=== PATIENT | male | born 1990 | race American Indian/Alaskan Native ===

== ENCOUNTER 2020-10-14 16:28 | Emergency (ER) | payer SELFPAY ==
[2020-10-14 17:21] VITALS: BP 146/81
[2020-10-14] MEDS ORDERED: PENICILLIN G BENZATHINE 1.2 MILLION UNIT/2 ML INJ IM ONE (18:02)
--- NOTE | 2020-10-14 18:06 | Emergency Department Report ---
ED Male HPI - General Chief complaint: Dental/Oral Stated complaint: LIP SWOLLEN Source: patient Mode of arrival: Ambulatory Limitations: No Limitations - History of Present Illness Initial comments: 30-year-old -Vincentian male with a history of HIV that is noncompliant on medications presents to the emergency room for a fever blister on his left lower lip and neck chancre lesion on the dorsum side of the penis. Patient reports he is followed by [facility] but has not seen them since covid. Patient has not taken any pain medication. Patient reports pain on the penis and the oral mucosa is a 10 out of 10. Onset/Timin -: days(s) (Fever blister), week(s) (Penis) Location: penis Severity: severe Severity scale (0 -10): 10 Quality: aching, burning, sharp Consistency: constant Improves with: none Worsens with: none - Related Data Sexually active: Yes Previous Rx's Medication Instructions Recorded Last Taken Type Acyclovir [Zovirax Tab] 400 mg PO Q8H #30 tab 10/14/20 Unknown Rx traMADoL [Ultram 50 MG tab] 50 mg PO Q6HR PRN #12 tablet 10/14/20 Unknown Rx Allergies Allergy/AdvReac Type Severity Reaction Status Date / Time No Known Allergies Allergy Unverified 10/14/20 17:17 ED Review of Systems ROS: Stated complaint: LIP SWOLLEN Other details as noted in HPI Comment: All other systems reviewed and negative ED Past Medical Hx - Past Medical History Previous Medical History?: No Hx HIV: Yes - Surgical History Past Surgical History?: No - Social History Smoking Status: Current Every Day Smoker Substance Use Type: Alcohol - Medications Home Medications: Home Medications Medication Instructions Recorded Confirmed Last Taken Type Acyclovir [Zovirax Tab] 400 mg PO Q8H #30 tab 10/14/20 Unknown Rx traMADoL [Ultram 50 MG tab] 50 mg PO Q6HR PRN #12 tablet 10/14/20 Unknown Rx ED Physical Exam - General Limitations: No Limitations General appearance: alert, in no apparent distress - Head Head exam: Present: atraumatic, normocephalic - Eye Eye exam: Present: normal appearance - ENT ENT exam: Present: mucous membranes moist - Neck Neck exam: Present: full ROM - Respiratory Respiratory exam: Absent: accessory muscle use - External exam: Present: lesions (Dorsum right penis ulcer quarter size) - Extremities Exam Extremities exam: Present: normal inspection, full ROM - Back Exam Back exam: Present: normal inspection, full ROM - Neurological Exam Neurological exam: Present: alert, oriented X3 - Psychiatric Psychiatric exam: Present: normal affect, normal mood - Skin Skin exam: Present: warm, dry, intact, normal color. Absent: rash ED Course Vital Signs 10/14/20 10/14/20 17:16 17:23 Temperature 98.6 F 98.2 F Pulse Rate 102 H Respiratory 14 18 Rate Blood Pressure 146/81 Blood Pressure 146/81 [Right] O2 Sat by Pulse 99 Oximetry ED Medical Decision Making - Medical Decision Making 30-year-old -Vincentian male with a history of HIV that is noncompliant on medications presents to the emergency room for a fever blister on his left lower lip and neck chancre lesion on the dorsum side of the penis. Patient reports he is followed by [facility] but has not seen them since covsd. Patient has not taken any pain medication. Patient reports pain on the penis and the oral mucosa is a 10 out of 10. HIV positive follow-up with [facility] to get started back on your retroviral medication Fever blister patient be placed on acyclovir 400 mg 3 times daily for 10 days Chancre lesion on penis patient will be given penicillin G 2.4 mg IM. Critical care attestation.: If time is entered above; I have spent that time in minutes in the direct care of this critically ill patient, excluding procedure time. 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 You are being treated for syphilis and herpes simplex 1. Inform your sexual partner that you are being treated for syphilis. Prescriptions: traMADoL [Ultram 50 MG tab] 50 mg PO Q6HR PRN #12 tablet PRN Reason: Pain Acyclovir [Zovirax Tab] 400 mg PO Q8H #30 tab Referrals: [facility] [Other] - 3-5 Days
[2020-10-14] MEDS ORDERED: traMADol 50 MG TAB PO ONE (18:19)
== END 2020-10-14 19:04 | disposition home or self-care (01) ==
LOC: ED 16:28
DX: A51.0 Primary genital syphilis (principal); B00.9 Herpesviral infection, unspecified; F17.200 Nicotine dependence, unspecified, uncomplicated; Z79.899 Other long term (current) drug therapy; Z21 Asymptomatic human immunodeficiency virus [HIV] infection status
CPT/HCPCS: 96372; 99282; J0561

== ENCOUNTER 2021-01-23 19:26 | Observation (INO) | payer OTHER, SELFPAY ==
[2021-01-23] MEDS ORDERED: ACETAMINOPHEN 500 MG TAB PO ONE (19:54)
[2021-01-23] MEDS ORDERED: SODIUM CHLORIDE 0.9% 1000 ML 1,000 ML IV ONE (20:20)
[2021-01-23] MEDS ORDERED: ONDANSETRON 4 MG/2 ML INJ IV ONE (21:21)
[2021-01-23] MEDS ORDERED: HYDROmorphone 1 MG/1 ML INJ IV ONE (21:21)
[2021-01-23] MEDS ORDERED: AZITHROMYCIN/NS 500 MG/250 ML 500 MG/250 ML BAG IV ONE (21:22)
[2021-01-23] MEDS ORDERED: cefTRIAXone/NS 2 GM/100 ML 2 GM/100 ML BAG IV ONE (21:22)
[2021-01-23] MEDS ORDERED: dexAMETHasone 4 MG/ML VIAL IV ONE (21:22)
--- NOTE | 2021-01-23 21:24 | Emergency Department Report ---
ED Fever HPI - General Chief Complaint: Fever Stated Complaint: FEVER PUI?: Yes Time Seen by Provider: 01/23/21 20:19 Source: patient Exam Limitations: no limitations - History of Present Illness Initial Comments: Patient is a 30-year-old male that presents emergency room with complaints of fever, fatigue, loss of smell, sore throat. Patient states his symptoms started 4 days ago. Patient states his symptoms are worsening. Patient also complaining of body aches. Patient denies chest pain or shortness of breath. Patient denies nausea vomiting. Patient denies diarrhea. Patient states he has a history of HIV. Patient states he is not taking his HIV medications for many months. Patient dates he can get appointment with his infectious disease doctor. Patient states that he went to a alliance party last weekend and then developed symptoms. Patient denies coming in contact with a sick contact. Patient denies international travel. Patient denies diarrhea. Patient denies chest pain. Timing/Duration: getting worse Fever Severity/Quality: subjective Fever Therapy CHARGE LOADER: Ibuprofen Associated Symptoms: headache, muscle aches, sore throat. denies: abdominal pain, chest pain, confusion, cough, diaphoresis, nausea/vomiting, rash, shortness of breath, stiff neck, syncope, weakness ED Review of Systems ROS: Stated complaint: FEVER Other details as noted in HPI Constitutional: see HPI, chills, fever, malaise Eyes: denies: eye pain, eye discharge, vision change ENT: as per HPI, throat pain. denies: ear pain Respiratory: see HPI. denies: cough, shortness of breath, wheezing Cardiovascular: denies: chest pain, palpitations Endocrine: no symptoms reported Gastrointestinal: denies: abdominal pain, nausea, vomiting, diarrhea Genitourinary: denies: urgency, dysuria Musculoskeletal: denies: back pain, joint swelling, arthralgia Skin: denies: rash, lesions Neurological: denies: headache, weakness, paresthesias Psychiatric: denies: anxiety, depression Hematological/Lymphatic: denies: easy bleeding, easy bruising ED Past Medical Hx - Past Medical History Previous Medical History?: Yes Hx HIV: Yes - Surgical History Past Surgical History?: No - Family History Family history: no significant - Social History Smoking Status: Current Every Day Smoker Substance Use Type: None - Medications Home Medications: Home Medications Medication Instructions Recorded Confirmed Last Taken Type Acyclovir [Zovirax Tab] 400 mg PO Q8H #30 tab 10/14/20 Unknown Rx traMADoL [Ultram 50 MG tab] 50 mg PO Q6HR PRN #12 tablet 10/14/20 Unknown Rx ED Physical Exam - General Limitations: No Limitations General appearance: alert, in no apparent distress - Head Head exam: Present: atraumatic, normocephalic - Eye Eye exam: Present: normal appearance - ENT ENT exam: Present: mucous membranes moist - Neck Neck exam: Present: normal inspection - Respiratory Respiratory exam: Present: normal lung sounds bilaterally. Absent: respiratory distress - Cardiovascular Cardiovascular Exam: Present: regular rate, normal rhythm. Absent: systolic murmur, diastolic murmur, rubs, gallop - GI/Abdominal GI/Abdominal exam: Present: soft, normal bowel sounds - Rectal Rectal exam: Present: deferred - Extremities Exam Extremities exam: Present: normal inspection - Back Exam Back exam: Present: normal inspection - Neurological Exam Neurological exam: Present: alert, oriented X3 - Psychiatric Psychiatric exam: Present: normal affect, normal mood - Skin Skin exam: Present: warm, dry, intact, normal color. Absent: rash ED Course Vital Signs 01/23/21 19:53 Temperature 103.0 F H Pulse Rate 130 H Respiratory 22 Rate Blood Pressure 161/94 - Reevaluation(s) Reevaluation #1: Patient states he is feeling better after the pain medication. Patient has body aches of improved. 01/23/21 21:30 Reevaluation #2: I ambulated the patient with a portable pulse ox and the patient became hypoxic. Patient's oxygen level was 96 when resting. Patient oxygen level dropped to the 90 percent. Patient still tachycardic. Patient tachycardic worsened with ambulation. 01/23/21 22:41 Reevaluation #3: I discussed all results with patient. I discussed plan of care with patient. Patient agrees with plan of care and admission. Patient to be admitted to the hospitalist service. 01/23/21 23:15 - Consultations Consultation #1: Hospitalist consulted for admission. Hospitalist to admit patient. 01/23/21 23:15 ED Medical Decision Making - Lab Data Result diagrams: 01/23/21 21:28 01/23/21 21:28 - Radiology Data Radiology results: report reviewed, image reviewed interpreted by me: Chest x-ray: No pneumonia, no pneumothorax, no foreign body, no osseous findings, no acute findings CHEST 1 VIEW 01/23/2021 8:57 PM INDICATION / CLINICAL INFORMATION: fever. COMPARISON: None available. FINDINGS: SUPPORT DEVICES: None. HEART / MEDIASTINUM: No significant abnormality. LUNGS / PLEURA: No significant pulmonary or pleural abnormality. No pneumothorax. ADDITIONAL FINDINGS: No significant additional findings. IMPRESSION: No acute cardiopulmonary abnormality. - Medical Decision Making Patient is a 30-year-old male who with a history of HIV that presents emergency room with complaints of fever, fatigue, body aches. Patient went to a social event 2 days prior to symptoms developing. Patient has been noncompliant for many months with his HIV medications. Patient had labs done which showed low WBC and the rest of the labs were essentially unremarkable. Patient had a chest x-ray was negative for acute finding. Patient given Covid medications include cefepime, Zithromax and Decadron. I ambulated the patient after medication were given and the patient became hypoxic during ambulation. Patient placed on oxygen. Patient admitted to the hospital service for further evaluation and treatment. Critical care time documented due to the multiple reassessments, prolonged time at the bedside, interpretation of diagnostics and labs. - Differential Diagnosis Covid, PUI, fever, cough, fatigue, noncompliance with HIV medications Critical Care Time: Yes Critical care time in (mins) excluding proc time.: 35 Critical care attestation.: If time is entered above; I have spent that time in minutes in the direct care of this critically ill patient, excluding procedure time. Critical Care Time: 35 minutes ED Disposition Clinical Impression: Person under investigation for COVID-19, Hypoxia, Tachycardia, Noncompliance, Myalgia Fever Qualifiers: Fever type: unspecified Qualified Code(s): R50.9 - Fever, unspecified Respiratory failure Qualifiers: Chronicity: acute Respiratory failure complication: hypoxia Qualified Code(s): J96.01 - Acute respiratory failure with hypoxia HIV (human immunodeficiency virus infection) Qualifiers: HIV symptom status: unspecified Qualified Code(s): B20 - Human immunodeficiency virus [HIV] disease Disposition: DC-09 OP ADMIT IP TO THIS HOSP Is pt being admited?: Yes Does the pt Need Aspirin: No Condition: Critical Time of Disposition: 23:16
[2021-01-23] MEDS ORDERED: SODIUM CHLORIDE 0.9% 1000 ML IV SOLN IV ONE (21:25)
[2021-01-23 21:54] LABS: Hematocrit 38.1 % (35.5-45.6); Hemoglobin 12.6 gm/dl (11.8-15.2); Mean Corpuscular HGB Conc 33 % (32-34); Mean Corpuscular Volume 79 fl (84-94); Platelet Count 186 K/mm3 (140-440); Red Blood Count 4.84 M/mm3 (3.65-5.03); Red Cell Distribution Width 14.2 % (13.2-15.2)
--- NOTE | 2021-01-23 22:04 | XRay Report ---
CHEST 1 VIEW 01/23/2021 8:57 PM INDICATION / CLINICAL INFORMATION: fever. COMPARISON: None available. FINDINGS: SUPPORT DEVICES: None. HEART / MEDIASTINUM: No significant abnormality. LUNGS / PLEURA: No significant pulmonary or pleural abnormality. No pneumothorax. ADDITIONAL FINDINGS: No significant additional findings. IMPRESSION: No acute cardiopulmonary abnormality. Signer Name: Roland Graham MD Signed: 01/23/2021 10:00 PM Workstation Name: [id number]
[2021-01-23 22:26] LABS: Alanine Aminotransferase 19 units/L (7-56); Albumin 3.5 g/dL (3.9-5); BUN/Creatinine Ratio 8; Blood Urea Nitrogen 8 mg/dL (9-20); Calcium 8.8 mg/dL (8.4-10.2); Hemolysis Index 5
[2021-01-23 22:31] LABS: Bilirubin,Direct < 0.2 mg/dL (0-0.2)
[2021-01-23 22:46] LABS: Total Cells Counted 100
[2021-01-23 22:47] LABS: Anisocytosis Few
[2021-01-24] MEDS ORDERED: dexAMETHasone 4 MG/ML VIAL IV SCH (00:03)
[2021-01-24] MEDS ORDERED: traMADol 50 MG TAB PO PRN (00:03)
--- NOTE | 2021-01-24 00:10 | History and Physical Report ---
History of Present Illness Date of examination: 01/24/21 Date of admission: 01/24/21 Chief complaint: Fever Covid like symptom History of present illness: 30-year-old male with history of HIV was brought to the emergency room with complaints of fever, fatigue, loss of smell, sore throat for the last 4 days ago. Patient states his symptoms are worsening. Patient also complaining of body aches. Patient denies chest pain or shortness of breath. Patient denies nausea vomiting. Patient denies diarrhea. Patient states he has a history of HIV. Patient states he is not taking his HIV medications for many months. In the emergency room patient is found to have fever of 103 F. Covid test is pending Past History Past Medical History: HIV/AIDS Medications and Allergies Allergies Allergy/AdvReac Type Severity Reaction Status Date / Time No Known Allergies Allergy Unverified 10/14/20 17:17 Home Medications Medication Instructions Recorded Confirmed Last Taken Type Acyclovir [Zovirax Tab] 400 mg PO Q8H #30 tab 10/14/20 Unknown Rx traMADoL [Ultram 50 MG tab] 50 mg PO Q6HR PRN #12 tablet 10/14/20 Unknown Rx Active Meds: Active Medications Acyclovir (Acyclovir 200 Mg Cap) 400 mg PO Q8HR MINERVA Famotidine (Famotidine 20 Mg Tab) 20 mg PO BID [facility]ERVA Ceftriaxone Sodium (Rocephin/Ns 2 Gm/100 Ml) 2 gm in 100 mls @ 200 mls/hr IV Q24HR MIENRVA; Protocol Azithromycin (Zithromax/Ns) 500 mg in 250 mls @ 250 mls/hr IV Q24HR MINERVA; Protocol Tramadol HCl (Tramadol 50 Mg Tab) 50 mg PO Q6HR PRN PRN Reason: PAIN (4-6) Review of Systems Constitutional: fever, chills Exam - Constitutional Vitals: Temp Pulse Resp BP Pulse Ox 103.0 F H 130 H 22 161/94 01/23/21 19:53 01/23/21 19:53 01/23/21 19:53 01/23/21 19:53 General appearance: Present: no acute distress, well-nourished - EENT Eyes: Present: PERRL ENT: hearing intact, clear oral mucosa - Neck Neck: Present: supple, normal ROM - Respiratory Respiratory effort: normal Respiratory: bilateral: CTA - Cardiovascular Heart Sounds: Present: S1 & S2. Absent: rub, click - Extremities Extremities: pulses symmetrical, No edema Peripheral Pulses: within normal limits - Abdominal General gastrointestinal: Present: soft, non-tender, non-distended, normal bowel sounds Male genitourinary: Present: normal - Integumentary Integumentary: Present: clear, warm, dry - Musculoskeletal Musculoskeletal: gait normal, strength equal bilaterally - Psychiatric Psychiatric: appropriate mood/affect, intact judgment & insight - Neurologic Neurologic: CNII-XII intact, moves all extremities Results - Labs CBC & Chem 7: 01/23/21 21:28 01/23/21 21: Labs: Laboratory Last Values WBC 2.9 K/mm3 (4.5-11.0) L 01/23/21: RBC 4.84 M/mm3 (3.65-5.03) 01/23/21 21: Hgb 12.6 gm/dl (11.8-15.2) 01/23/21: Hct 38.1 % (35.5-45.6) 01/23/21 21: MCV 79 fl (84-94) L 01/23/21 21: MCH 26 pg (28-32) L 01/23/21 21: MCHC 33 % (32-34) 01/23/21: RDW 14.2 % (13.2-15.2) 01/23/21 21: Plt Count 186 K/mm3 (140-440) 01/23/21 21: [place] % (Auto) Intellectual Property Lawyer 01/23/21 21: Add Manual Diff Complete 01/23/21 21: Total Counted 100 01/23/21 21: Seg Neutrophils % Intellectual Property Lawyer 01/23/21 21: Lymphocytes % (Manual) 45.0 % (13.4-35.0) H 01/23/21 21: Monocytes % (Manual) 44.0 % (0.0-7.3) H 01/23/21 21: Eosinophils % (Manual) 1.0 % (0.0-4.3) 01/23/21 21: Nucleated RBC % Not Reportable 01/23/21 21: Seg Neutrophils # Man 0.3 K/mm3 (1.8-7.7) L 01/23/21 21:28 Band Neutrophils # 0.0 K/mm3 01/23/21 21:28 Lymphocytes # (Manual) 1.3 K/mm3 (1.2-5.4) 01/23/21 21:28 Abs React Lymphs (Man) 0.0 K/mm3 01/23/21 21:28 Monocytes # (Manual) 1.3 K/mm3 (0.0-0.8) H 01/23/21 21:28 Eosinophils # (Manual) 0.0 K/mm3 (0.0-0.4) 01/23/21 21:28 Basophils # (Manual) 0.0 K/mm3 (0.0-0.1) 01/23/21 21:28 Metamyelocytes # 0.0 K/mm3 01/23/21 21:28 Myelocytes # 0.0 K/mm3 01/23/21 21:28 Promyelocytes # 0.0 K/mm3 01/23/21 21:28 Blast Cells # 0.0 K/mm3 01/23/21 21:28 WBC Morphology Not Reportable 01/23/21 21:28 Hypersegmented Neuts Not Reportable 01/23/21 21:28 Hyposegmented Neuts Not Reportable 01/23/21 21:28 Hypogranular Neuts Not Reportable 01/23/21 21:28 Smudge Cells Not Reportable 01/23/21 21:28 Toxic Granulation Not Reportable 01/23/21 21:28 Toxic Vacuolation Not Reportable 01/23/21 21:28 Dohle Bodies Not Reportable 01/23/21 21:28 Pelger-Huet Anomaly Not Reportable 01/23/21 21:28 Barbara Rods Not Reportable 01/23/21 21:28 Platelet Estimate Not Reportable 01/23/21 21:28 Clumped Platelets Not Reportable 01/23/21 21:28 Plt Clumps, EDTA Not Reportable 01/23/21 21:28 Large Platelets Not Reportable 01/23/21 21:28 Giant Platelets Not Reportable 01/23/21 21:28 Platelet Satelliting Not Reportable 01/23/21 21:28 Plt Morphology Comment Not Reportable 01/23/21 21:28 RBC Morphology Not Reportable 01/23/21 21:28 Dimorphic RBCs Not Reportable 01/23/21 21:28 Polychromasia Not Reportable 01/23/21 21:28 Hypochromasia Not Reportable 01/23/21 21:28 Poikilocytosis Not Reportable 01/23/21 21:28 Anisocytosis Few 01/23/21 21:28 Microcytosis Few 01/23/21 21:28 Macrocytosis Not Reportable 01/23/21 21:28 Spherocytes Not Reportable 01/23/21 21:28 Pappenheimer Bodies Not Reportable 01/23/21 21:28 Sickle Cells Not Reportable 01/23/21 21:28 Target Cells Not Reportable 01/23/21 21:28 Tear Drop Cells Not Reportable 01/23/21 21:28 Ovalocytes Not Reportable 01/23/21 21:28 Helmet Cells Not Reportable 01/23/21 21:28 [place] Bodies Not Reportable 01/23/21 21:28 [place] Rings Not Reportable 01/23/21 21:28 Basim Cells Not Reportable 01/23/21 21:28 Bite Cells Not Reportable 01/23/21 21:28 Crenated Cell Not Reportable 01/23/21 21:28 Elliptocytes Not Reportable 01/23/21 21:28 Acanthocytes (Spur) Not Reportable 01/23/21 21:28 Rouleaux Not Reportable 01/23/21 21:28 Hemoglobin C Crystals Not Reportable 01/23/21 21:28 Schistocytes Not Reportable 01/23/21 21:28 Malaria parasites Not Reportable 01/23/21 21:28 Papa Bodies Not Reportable 01/23/21 21:28 Hem Pathologist Commnt No 01/23/21 21:28 Sodium 135 mmol/L (137-145) L 01/23/21 21:28 Potassium 3.2 mmol/L (3.6-5.0) L 01/23/21 21:28 Chloride 96.8 mmol/L (98-107) L 01/23/21 21:28 Carbon Dioxide 28 mmol/L (22-30) 01/23/21 21:28 Anion Gap 13 mmol/L 01/23/21 21:28 BUN 8 mg/dL (9-20) L 01/23/21 21:28 Creatinine 1.0 mg/dL (0.8-1.3) 01/23/21 21:28 Estimated GFR > 60 ml/min 01/23/21 21:28 BUN/Creatinine Ratio 8 % 01/23/21 21:28 Glucose 101 mg/dL (75-100) H 01/23/21 21:28 Lactic Acid 1.20 mmol/L (0.7-2.0) 01/23/21 21: Calcium 8.8 mg/dL (8.4-10.2) 01/23/21 21: Total Bilirubin 0.30 mg/dL (0.1-1.2) 01/23/21 21:28 Direct Bilirubin < 0.2 mg/dL (0-0.2) 01/23/21 21: Indirect Bilirubin 0.1 mg/dL 01/23/21 21: AST 31 units/L (5-40) 01/23/21 21: ALT 19 units/L (7-56) 01/23/21 21: Alkaline Phosphatase 76 units/L (35-129) 01/23/21 21: Total Protein 8.8 g/dL (6.3-8.2) H 01/23/21 21:28 Albumin 3.5 g/dL (3.9-5) L 01/23/21 21:28 Albumin/Globulin Ratio 0.7 % 01/23/21 21:28 Microbiology: Microbiology 01/23/21 21:28 Peripheral/Venous Blood Culture - Preliminary Culture in Progress 01/23/21 21:31 Peripheral/Venous Blood Culture - Preliminary Culture in Progress - Imaging and Cardiology Chest x-ray: image reviewed Assessment and Plan - Patient Problems (1) Fever Current Visit: Yes Status: Acute Qualifiers: Fever type: unspecified Qualified Code(s): R50.9 - Fever, unspecified Plan to address problem: Admit the patient to the medical floor telemetry. We will put the patient on Rocephin 1 g IV daily and Zithromax 500 IV daily. Decadron 6 mg IV daily. DuoNeb by nebulizer every 4 hours as needed. Tylenol 650 mg p.o. every 6 as needed. We will do the blood culture and sputum culture. Please consult infectious disease if needed. Patient will follow up with HIV clinic as outpatient (2) HIV (human immunodeficiency virus infection) Current Visit: Yes Status: Acute Qualifiers: HIV symptom status: unspecified Qualified Code(s): B20 - Human immunodeficiency virus [HIV] disease Plan to address problem: Patient is noncompliant with the HIV medication. Please consult infectious disease if needed. Patient will follow up with HIV clinic as outpatient (3) Myalgia Current Visit: Yes Status: Acute Plan to address problem: Tylenol 650 mg p.o. every 6 hours as needed. (4) Person under investigation for COVID-19 Current Visit: Yes Status: Acute Plan to address problem: Admit the patient to the medical floor telemetry. We will put the patient on Rocephin 1 g IV daily and Zithromax 500 IV daily. Decadron 6 mg IV daily. DuoNeb by nebulizer every 4 hours as needed. Tylenol 650 mg p.o. every 6 as n eeded. We will do the blood culture and sputum culture. Please consult infectious disease if needed. Patient will follow up with HIV clinic as outpatient (5) DVT prophylaxis Current Visit: Yes Status: Acute Plan to address problem: Patient is on heparin 5000 units subcu every 8 hours for DVT prophylaxis and Pepcid 20 mg p.o. twice daily for GI prophylaxis. Patient is a full code
[2021-01-24 02:05] LABS: Bilirubin,Urine NEG (Negative); Blood,Urine NEG (Negative); Color,Urine Straw (Yellow); Protein,Urine <15 mg/dL mg/dL (Negative); RBC,Urine < 1.0 /HPF (0.0-6.0); Urobilinogen,Urine < 2.0 mg/dL (<2.0)
[2021-01-24] MEDS ORDERED: PHENOL 1.4% 177 ML BOTTLE MM PRN (02:41)
[2021-01-24] MEDS: HEPARIN 5,000 UNIT/1 ML VIAL SUB-Q SCH ×3 (02:50→13:01)
[2021-01-24] MEDS ORDERED: ACYCLOVIR 200 MG CAP PO SCH (06:00)
[2021-01-24 07:48] VITALS: BP 140/96
[2021-01-24] MEDS ORDERED: cefTRIAXone/NS 2 GM/100 ML 2 GM/100 ML BAG IV SCH (10:00)
[2021-01-24] MEDS ORDERED: FAMOTIDINE 20 MG TAB PO SCH (10:00)
[2021-01-24] MEDS ORDERED: AZITHROMYCIN/NS 500 MG/250 ML 500 MG/250 ML BAG IV SCH (10:00)
--- NOTE | 2021-01-24 10:23 | Progress Note ---
Assessment and Plan Assessment and plan: --PUI; high suspicion for COVID-19; Continue contact and droplet isolation Sharif PCR test is requested Inflammatory markers, ID consult Oxygen titrate O2 sats more than 90% Home oxygen evaluation at discharge --Febrile illness; Evaluate for sepsis, rule out COVID-19 Antipyretics, cultures, empiric antibiotics --Leukopenia; secondary to underlying disease HIV As well as possible Covid 19 Closely monitor --Hypokalemia; Supplement with oral KCl Follow electrolytes --Mild hyponatremia; IV fluids closely monitor electrolytes --History of HIV; Noncompliant with HIV medications ID consulted, patient will follow with HIV clinic for personal ID Upon discharge medical noncompliance --Medical noncompliance; Patient strongly advised to comply with medications diet follow-up visits Patient verbalized understanding --DVT prophylaxis; Heparin Follow staff consultant recommendations Closely monitor the patient and adjust the management as needed Hospitalist Physical - Constitutional Vitals: Temp Pulse Resp BP Pulse Ox 99.0 F 48 L 20 140/96 98 01/24/21 05:14 01/24/21 06:08 01/24/21 08:47 01/24/21 06:10 01/24/21 08:47 General appearance: Present: no acute distress, well-nourished Results - Labs CBC & Chem 7: 01/24/21 10:58 01/24/21 10:58 Labs: Laboratory Last Values WBC 2.9 K/mm3 (4.5-11.0) L 01/23/21 21:28 RBC 4.84 M/mm3 (3.65-5.03) 01/23/21 21:28 Hgb 12.6 gm/dl (11.8-15.2) 01/23/21 21:28 Hct 38.1 % (35.5-45.6) 01/23/21 21:28 MCV 79 fl (84-94) L 01/23/21 21:28 MCH 26 pg (28-32) L 01/23/21 21:28 MCHC 33 % (32-34) 01/23/21 21:28 RDW 14.2 % (13.2-15.2) 01/23/21 21:28 Plt Count 186 K/mm3 (140-440) 01/23/21 21:28 Camp % (Auto) Sap Bw Consultant 01/23/21 21:28 Add Manual Diff Complete 01/23/21 21:28 Total Counted 100 01/23/21 21:28 Seg Neutrophils % Sap Bw Consultant 01/23/21 21:28 Lymphocytes % (Manual) 45.0 % (13.4-35.0) H 01/23/21 21:28 Monocytes % (Manual) 44.0 % (0.0-7.3) H 01/23/21 21:28 Eosinophils % (Manual) 1.0 % (0.0-4.3) 01/23/21 21:28 Nucleated RBC % Not Reportable 01/23/21 21:28 Seg Neutrophils # Man 0.3 K/mm3 (1.8-7.7) L 01/23/21 21:28 Band Neutrophils # 0.0 K/mm3 01/23/21 21:28 Lymphocytes # (Manual) 1.3 K/mm3 (1.2-5.4) 01/23/21 21:28 Abs React Lymphs (Man) 0.0 K/mm3 01/23/21 21:28 Monocytes # (Manual) 1.3 K/mm3 (0.0-0.8) H 01/23/21 21:28 Eosinophils # (Manual) 0.0 K/mm3 (0.0-0.4) 01/23/21 21:28 Basophils # (Manual) 0.0 K/mm3 (0.0-0.1) 01/23/21 21:28 Metamyelocytes # 0.0 K/mm3 01/23/21 21:28 Myelocytes # 0.0 K/mm3 01/23/21 21:28 Promyelocytes # 0.0 K/mm3 01/23/21 21:28 Blast Cells # 0.0 K/mm3 01/23/21 21:28 WBC Morphology Not Reportable 01/23/21 21:28 Hypersegmented Neuts Not Reportable 01/23/21 21:28 Hyposegmented Neuts Not Reportable 01/23/21 21:28 Hypogranular Neuts Not Reportable 01/23/21 21:28 Smudge Cells Not Reportable 01/23/21 21:28 Toxic Granulation Not Reportable 01/23/21 21:28 Toxic Vacuolation Not Reportable 01/23/21 21:28 Dohle Bodies Not Reportable 01/23/21 21:28 Pelger-Huet Anomaly Not Reportable 01/23/21 21:28 Barbara Rods Not Reportable 01/23/21 21:28 Platelet Estimate Not Reportable 01/23/21 21:28 Clumped Platelets Not Reportable 01/23/21 21:28 Plt Clumps, EDTA Not Reportable 01/23/21 21:28 Large Platelets Not Reportable 01/23/21 21:28 Giant Platelets Not Reportable 01/23/21 21:28 Platelet Satelliting Not Reportable 01/23/21 21:28 Plt Morphology Comment Not Reportable 01/23/21 21:28 RBC Morphology Not Reportable 01/23/21 21:28 Dimorphic RBCs Not Reportable 01/23/21 21:28 Polychromasia Not Reportable 01/23/21 21:28 Hypochromasia Not Reportable 01/23/21 21:28 Poikilocytosis Not Reportable 01/23/21 21:28 Anisocytosis Few 01/23/21 21:28 Microcytosis Few 01/23/21 21:28 Macrocytosis Not Reportable 01/23/21 21:28 Spherocytes Not Reportable 01/23/21 21:28 Pappenheimer Bodies Not Reportable 01/23/21 21:28 Sickle Cells Not Reportable 01/23/21 21:28 Target Cells Not Reportable 01/23/21 21:28 Tear Drop Cells Not Reportable 01/23/21 21:28 Ovalocytes Not Reportable 01/23/21 21:28 Helmet Cells Not Reportable 01/23/21 21:28 [place] Bodies Not Reportable 01/23/21 21:28 [place] Rings Not Reportable 01/23/21 21:28 Basim Cells Not Reportable 01/23/21 21:28 Bite Cells Not Reportable 01/23/21 21:28 Crenated Cell Not Reportable 01/23/21 21:28 Elliptocytes Not Reportable 01/23/21 21:28 Acanthocytes (Spur) Not Reportable 01/23/21 21:28 Rouleaux Not Reportable 01/23/21 21:28 Hemoglobin C Crystals Not Reportable 01/23/21 21:28 Schistocytes Not Reportable 01/23/21 21:28 Malaria parasites Not Reportable 01/23/21 21:28 Papa Bodies Not Reportable 01/23/21 21:28 Hem Pathologist Commnt No 01/23/21 21:28 D-Dimer 479.53 ng/mlDDU (0-234) H 01/23/21 23:51 Sodium 135 mmol/L (137-145) L 01/23/21 21:28 Potassium 3.2 mmol/L (3.6-5.0) L 01/23/21 21:28 Chloride 96.8 mmol/L (98-107) L 01/23/21 21:28 Carbon Dioxide 28 mmol/L (22-30) 01/23/21 21:28 Anion Gap 13 mmol/L 01/23/21 21:28 BUN 8 mg/dL (9-20) L 01/23/21 21: Creatinine 1.0 mg/dL (0.8-1.3) 01/23/21 21: Estimated GFR > 60 ml/min 01/23/21 21: BUN/Creatinine Ratio 8 % 01/23/21 21: Glucose 90 mg/dL (75-100) 01/23/21 23:51 Lactic Acid 1.20 mmol/L (0.7-2.0) 01/24/21 00:26 Calcium 8.8 mg/dL (8.4-10.2) 01/23/21 21: Ferritin 473.4 ng/mL (30.0-300.0) H 01/23/21 23:51 Total Bilirubin 0.30 mg/dL (0.1-1.2) 01/23/21 21: Direct Bilirubin < 0.2 mg/dL (0-0.2) 01/23/21 21: Indirect Bilirubin 0.1 mg/dL 01/23/21 21:28 AST 31 units/L (5-40) 01/23/21 21:28 ALT 19 units/L (7-56) 01/23/21 21:28 Alkaline Phosphatase 76 units/L (35-129) 01/23/21 21: Lactate Dehydrogenase 303 units/L (91-180) H 01/23/21 23:51 C-Reactive Protein 11.00 mg/dL (0.00-1.30) H 01/23/21 23:51 Total Protein 8.8 g/dL (6.3-8.2) H 01/23/21 21:28 Albumin 3.5 g/dL (3.9-5) L 01/23/21 21:28 Albumin/Globulin Ratio 0.7 % 01/23/21 21:28 Urine Color Straw (Yellow) 01/24/21 01:49 Urine Turbidity Clear (Clear) 01/24/21 01:49 Urine pH 6.0 (5.0-7.0) 01/24/21 01:49 Ur Specific Divide 1.006 (1.003-1.030) 01/24/21 01:49 Urine Protein <15 mg/dl mg/dL (Negative) 01/24/21 01:49 Urine Glucose (UA) Neg mg/dL (Negative) 01/24/21 01:49 Urine Ketones Tr mg/dL (Negative) 01/24/21 01:49 Urine Blood Neg (Negative) 01/24/21 01:49 Urine Nitrite Neg (Negative) 01/24/21 01:49 Urine Bilirubin Neg (Negative) 01/24/21 01:49 Urine Urobilinogen < 2.0 mg/dL (<2.0) 01/24/21 01:49 Ur Leukocyte Esterase Neg (Negative) 01/24/21 01:49 Urine WBC (Auto) 2.0 /HPF (0.0-6.0) 01/24/21 01:49 Urine RBC (Auto) < 1.0 /HPF (0.0-6.0) 01/24/21 01:49 U Epithel Cells (Auto) 1.0 /HPF (0-13.0) 01/24/21 01:49 Microbiology: Microbiology 01/23/21 21:28 Peripheral/Venous Blood Culture - Preliminary Culture in Progress 01/23/21 21:31 Peripheral/Venous Blood Culture - Preliminary Culture in Progress Son/IV: Voiding Method Toilet Active Medications - Current Medications Current Medications: Generic Name Dose Route Start Last Admin Trade Name Freq PRN Reason Stop Dose Admin Acyclovir 400 mg 01/24/21 06:00 Acyclovir 200 Mg Cap PO Q8HR [facility] Dexamethasone 6 mg 01/24/21 00:03 01/24/21 02:50 Dexamethasone 4 Mg/Ml Vial IV 6 mg DAILY [facility] Administration Famotidine 20 mg 01/24/21 10:00 Famotidine 20 Mg Tab PO BID [facility] Heparin Sodium (Porcine) 5,000 unit 01/24/21 00:15 01/24/21 07:29 Heparin 5,000 Unit/1 Ml Vial SUB-Q Not Given Q8HR [facility] Ceftriaxone Sodium 2 gm in 100 mls @ 200 mls/hr 01/24/21 10:00 Rocephin/Ns 2 Gm/100 Ml IV Q24HR [facility] Protocol Azithromycin 500 mg in 250 mls @ 250 mls/hr 01/24/21 10:00 Zithromax/Ns IV Q24HR [facility] Protocol Phenol 1 spray 01/24/21 02:41 01/24/21 02:57 Phenol 1.4% 177 Ml Bottle MM 1 spray PRN PRN Administration Sore Throat Tramadol HCl 50 mg 01/24/21 00:03 01/24/21 02:51 Tramadol 50 Mg Tab PO 50 mg Q6HR PRN Administration PAIN (4-6)
[2021-01-24 11:46] LABS: Hematocrit 36.2 % (35.5-45.6); Hemoglobin 11.9 gm/dl (11.8-15.2); Mean Corpuscular HGB Conc 33 % (32-34); Mean Corpuscular Volume 79 fl (84-94); Platelet Count 180 K/mm3 (140-440); Red Blood Count 4.57 M/mm3 (3.65-5.03); Red Cell Distribution Width 14.5 % (13.2-15.2)
[2021-01-24] MEDS ORDERED: DEXAMETHASONE 4 MG TAB PO SCH (12:00)
[2021-01-24] MEDS ORDERED: AZITHROMYCIN 250 MG TAB PO SCH (12:00)
[2021-01-24 12:10] LABS: BUN/Creatinine Ratio 11; Blood Urea Nitrogen 9 mg/dL (9-20); Calcium 7.8 mg/dL (8.4-10.2); Hemolysis Index 26
--- NOTE | 2021-01-24 16:04 | Discharge Summary ---
Providers - Providers Date of Admission: 01/23/21 23:46 Date of discharge: 01/24/21 Attending physician: CHERELLE PELAYO 01/24/21 00:15 Consult to Physician [CONS] Routine Comment: Consulting Provider: DARIA BLANCO Physician Instructions: Reason For Exam: covid Primary care physician: [employer] Hospitalization Reason for admission: Fever/loss of smell and taste Condition: Serious Pertinent studies: Chest x-ray Hospital course: 30-year-old male with history of HIV was was admitted through the emergency room with complaints of fever, fatigue, loss of smell, sore throat for the last 4 days duration, patient was placed as PUI, guzman PCR test was sent placed in isolation, patient had very high fever, ID was consulted Being managed appropriately, however patient did not want to stay in the hospital, wanted to leave AMA Risks and benefits and complications of leaving when he is sick without treatment was explained to the patient, he verbalized understanding Did not want to stay, left AMA, encouraged him to go to the nearest emergency room should he have any symptoms. Diagnosis: --PUI; high suspicion for COVID-19; --Febrile illness; --Leukopenia; secondary to underlying disease HIV --Hypokalemia; --Mild hyponatremia; --History of HIV; --Medical noncompliance; --DVT prophylaxis; Heparin. Patient left AMA Disposition: [id number] LEFT AGAINST MED ADVICE Final Discharge Diagnosis (Prints w/discharge instructions): Diagnosis: --PUI; high suspicion for COVID-19;. --Febrile illness;. --Leukopenia; secondary to underlying disease HIV. --Hypokalemia;. --Mild hyponatremia;. --History of HIV;. --Medical noncompliance;. --DVT prophylaxis; Heparin. Patient left AMA Time spent for discharge: 32 minutes Core Measure Documentation - Palliative Care Palliative Care/ Comfort Measures: Not Applicable - Core Measures Any of the following diagnoses?: none Exam - Constitutional Vitals: Temp Pulse Resp BP Pulse Ox 99.0 F 48 L 20 140/96 98 01/24/21 05:14 01/24/21 06:08 01/24/21 08:47 01/24/21 06:10 01/24/21 10:22 General appearance: Present: mild distress, well-nourished - EENT Eyes: Present: PERRL, EOM intact - Neck Neck: Present: supple, normal ROM - Respiratory Respiratory effort: normal Respiratory: bilateral: diminished, negative: rales, rhonchi, wheezing - Cardiovascular Rhythm: regular Heart Sounds: Present: S1 & S2 - Extremities Extremities: no ischemia, No edema - Abdominal General gastrointestinal: Present: soft, non-tender, non-distended, normal bowel sounds - Integumentary Integumentary: Present: clear, warm - Musculoskeletal Musculoskeletal: strength equal bilaterally, generalized weakness - Psychiatric Psychiatric: appropriate mood/affect, cooperative - Neurologic Neurologic: moves all extremities Plan Activity: advance as tolerated Diet: regular Additional Instructions: Advised to go to emergency room if he has any symptoms. Risks and consequences and complications of leaving AMA discussed with the patient. Verbalized understanding. Patient left AMA Follow up with: PRIMARY CARE, [Primary Care Provider] - 3-5 Days
[2021-01-24 19:45] LABS: Band Neutrophils # (Manual) 0.5 K/mm3; Total Cells Counted 100
[2021-01-24 19:49] LABS: Ovalocytes Rare
[2021-01-24 19:50] LABS: Large Platelets Rare; Platelet Estimate Consistent w Auto
== END 2021-01-24 14:00 | disposition left against medical advice (07) ==
LOC: ED 19:26 → 3A 23:46
PROVIDERS: ADMIT Hospitalist; ATTEND Internal Medicine
DX: J96.01 Acute respiratory failure with hypoxia (principal); Z20.822 Contact with and (suspected) exposure to COVID-19; B20 Human immunodeficiency virus [HIV] disease; R50.9 Fever, unspecified; R51.9 Headache, unspecified; F17.200 Nicotine dependence, unspecified, uncomplicated; M79.10 Myalgia, unspecified site; D72.819 Decreased white blood cell count, unspecified; E87.6 Hypokalemia; E87.1 Hypo-osmolality and hyponatremia; Z91.14 Patient's other noncompliance with medication regimen
CPT/HCPCS: 36415; 71045; 80048; 80076; 81001; 82140; 82728; 82947; 83615; 84145; 85007; 85025; 85379; 86140; 87040; 87086; 96361; 96365; 96366; 96368; 96372; 96375; 96376; 99291; G0378; J0456; J0696; J1100; J1170; J1644; J2405; J7030; J8540; U0003